=== PATIENT | female | born 1955 | race Caucasian/White ===

== ENCOUNTER → 2017-06-24 | Outpatient (CLI) | payer OTHER ==
[~2017-06-24] MED LIST: DITROPAN XL10 MG PO; PROZAC40 MG PO; REQUIP 1MG T1 MG/TAB PO
== END ==
LOC: COL.RAD 08:10
DX: K52.832 Lymphocytic colitis (principal); N89.8 Other specified noninflammatory disorders of vagina; R15.9 Full incontinence of feces; R19.7 Diarrhea, unspecified; J84.10 Pulmonary fibrosis, unspecified; Z90.710 Acquired absence of both cervix and uterus
CPT/HCPCS: Q9967

== ENCOUNTER 2019-05-29 09:14 | Outpatient (CLI) | payer OTHER ==
--- NOTE | 2019-05-24 09:15 | NUR ---
left msg on the machine to call back.
[2019-05-29] VITALS (9 sets, daily range): BP systolic 128–141; BP diastolic 63–84; PULSE 59–86; TEMP 97.9
[~2019-05-29] VITALS: Ht 162.6 cm; Wt 94.8 kg
[~2019-05-29 09:14] MED LIST changes: +CALCIUM 600MG+D1 TAB PO; +CALCIUM WITH D31 CTB PO; +COLESTID 1GM1 G PO; +ESTRACE 1MG1 MG/TAB PO; +FOSAMAX 70MG TA70 MG PO; +NATURAL IRON65 MG PO; +NEURONTIN300 MG/CAP PO; +NEURONTIN600 MG/TAB PO; +NEXIUM 40MG40 MG PO; +VITAMIN C500 MG PO; +VITAMIN D31000 I1 PO
[2019-05-29] MEDS ORDERED: TYLENOL 500MG500 MG PO (09:29)
--- NOTE | 2019-05-29 10:35 | NUR ---
Pt to [facility] 9 per cart s/p LP. Pt resting well.
[2019-05-29 11:07] LABS: GLUCOSE,CSF 49 mg/dL (40-70); TOTAL PROTEIN,CSF 39 mg/dL (15-45)
--- NOTE | 2019-05-29 12:30 | NUR ---
Pt has ambulated, voided and maria l PO intake s n/v.
--- NOTE | 2019-05-29 12:40 | NUR ---
Pt discharged per w/c by nurse with friend.
[2019-05-29 14:37] LABS: CSF APPEARANCE CLEAR; CSF COLOR COLORLESS; CSF RBC 800 /mm3 (0-0)
[2019-05-29 14:38] LABS: CSF MONONUCLEAR 100 % (70-100); CSF POLYMORPHONUCLEAR 0 % (0-6)
[2019-05-30 08:40] LABS: CD4 CD8 Ratio 8.11 (1.00-2.90); CD4 Helper T Cell 68.1 % (29.0-59.0); CD8 Suppressor T Cells 8.4 % (18.0-36.0)
== END 2019-05-29 16:12 | disposition home or self-care (01) ==
LOC: COL.RAD 09:14
PROVIDERS: Psychiatry & Neurology Neurology
DX: G37.9 Demyelinating disease of central nervous system, unspecified (principal)

== ENCOUNTER → 2020-04-29 | Outpatient (CLI) | payer OTHER ==
[~2020-04-29] MED LIST changes: +TYLENOL 500MG500 MG PO
== END ==
LOC: COL.RAD
DX: Z02.71 Encounter for disability determination (principal); M51.36 Other intervertebral disc degeneration, lumbar region